=== PATIENT | female | born 1975 | race Caucasian/White ===

== ENCOUNTER 2020-02-21 11:30 | Outpatient (REF) | payer OTHER, SELFPAY ==
[2020-02-22 07:18] LABS: COVID-19 Test Negative (Negative)
== END 2020-02-21 11:31 | disposition home or self-care (01) ==
LOC: HO.LAB 11:30
PROVIDERS: PCP Family Medicine; Visit Provider Internal Medicine
DX: Z20.828 Contact with and (suspected) exposure to other viral communicable diseases (principal)
CPT/HCPCS: 87635

== ENCOUNTER → 2022-02-12 13:11 | Outpatient (RCR) | payer OTHER, SELFPAY ==
[2020-04-08 10:05] LABS: SARS-COV-2 PCR UMBRL Not Detected
[2020-05-02 09:47] LABS: SARS-COV-2 PCR UMBRL Not Detected
[2020-05-17 11:08] LABS: SARS-COV-2 PCR UMBRL NEGATIVE
[2020-05-31 08:58] LABS: SARS-COV-2 PCR UMBRL NEGATIVE
[2020-06-14 08:32] LABS: SARS-COV-2 PCR UMBRL NEGATIVE
[2020-06-29 09:15] LABS: SARS-COV-2 PCR UMBRL NEGATIVE
[2020-07-12 09:02] LABS: SARS-COV-2 PCR UMBRL NEGATIVE
[2020-07-25 11:17] LABS: SARS-COV-2 PCR UMBRL NEGATIVE
[2020-08-08 07:59] LABS: SARS-COV-2 PCR UMBRL NEGATIVE
[2020-08-22 07:53] LABS: SARS-COV-2 PCR UMBRL NEGATIVE
== END | disposition home or self-care (01) ==
LOC: HO.EMPCOV 04-02
PROVIDERS: Visit Provider Internal Medicine
DX: Z20.828 Contact with and (suspected) exposure to other viral communicable diseases (principal)
CPT/HCPCS: 36415; U0003